=== PATIENT | male | born 1985 | race Caucasian/White ===

== ENCOUNTER 2023-05-25 11:06 | Emergency (ER) | payer OTHER, SELFPAY ==
[2023-05-25 11:23] VITALS: BP 149/82; PULSE 70; RESP 16; TEMP 36.3; O2SAT 100
--- NOTE | 2023-05-25 11:36 | ED.SKABFB ---
HPI - Skin/Abscess/Foreign Bdy General Chief complaint: Skin/Abscess/Foreign Body Stated complaint: Bumps,Lumps, on Butt Time Seen by Provider: 05/25/23 11:36 Source: patient Mode of arrival: ambulatory Limitations: no limitations History of Present Illness HPI narrative: 37 yo M presents with c/o pain to tailbone. Is concerned that he has a pilonidal cyst. Feels a bump. pain worse when sitting. States he had pilonidal cyst approx. 10 yrs ago and took abx and went away. Denies excision. Afebrile. pt states just wants some abx and pain medicine. All systems reviewed and negative except as noted above. Related Data Home Medications Medication Instructions Recorded Confirmed albuterol sulfate 90 mcg/actuation inhalation 05/25/23 aerosol inhaler blood sugar diagnostic (OneTouch 05/25/23 05/25/23 Verio test strips) budesonide-formoterol HFA 160 inhalation 05/25/23 mcg-4.5 mcg/actuation aerosol inhaler empagliflozin 10 mg tablet mg 05/25/23 (Jardiance) fluoxetine 40 mg capsule mg 05/25/23 metformin 500 mg tablet mg 05/25/23 omeprazole 20 mg capsule,delayed mg 05/25/23 release Allergies Allergy/AdvReac Type Severity Reaction Status Date / Time tramadol AdvReac Nausea Verified 05/25/23 11:31 Review of Systems Review of Systems: CONSTITUTIONAL: Denies fever, chills, or sweats. EYES: Denies visual changes, redness, or discharge. ENT: Denies rhinorrhea, congestion, sore throat, or otalgia. CARDIOVASCULAR: Denies chest pain, palpitations, or edema. RESPIRATORY: Denies cough or dyspnea. GASTROINTESTINAL: Denies abdominal pain, nausea, vomiting, or diarrhea. GENITOURINARY: Denies dysuria or hematuria. SKIN: Denies rash or itching. reports Bump to tailbone concerning for pilonidal cyst. MUSCULOSKELETAL: Denies back pain, joint pain, or myalgia. NEUROLOGIC: Denies headache, numbness, or weakness. PSYCHIATRIC: Denies anxiety or depression. All other systems reviewed are negative, except as documented in HPI. [facility] Comments At time of signature, agree with nursing past medical, surgical, social and family history. There is no relevant family history pertinent to the presenting complaint. Exam Narrative: GENERAL: This is a well-nourished, well-developed patient, in no apparent distress. HEAD: normocephalic, atraumatic. EYES: PERRL. Sclera clear/white. Vision is grossly intact. EARS: External ears normal NOSE: External nose normal NECK: Neck supple, non-tender without lymphadenopathy, masses or thyromegaly. CARDIOVASCULAR: Regular rate and rhythm without murmurs, gallops, or rubs. RESPIRATORY: Clear to auscultation. Breath sounds equal bilaterally. No wheezes, rales, or rhonchi. SKIN: warm, Dry, intact with no suspicious lesions or rash, good texture and turgor. firm raised area just above tailbone, 4cmx 2cm, without erythema or warmth. no fluctuance. tender on palpation. NEURO: awake, alert, and oriented to person, place and time. There were no obvious focal neurologic abnormalities. EXTREMITIES: No joint tenderness, effusion, or edema noted. Course Course Level of Care: Express Care Visit Vital Signs Vital signs: Vital Signs Temperature 36.3 C L 05/25/23 11:23 Pulse Rate 70 05/25/23 11:23 Respiratory Rate 16 05/25/23 11:23 Blood Pressure 149/82 H 05/25/23 11:23 Pulse Oximetry 100 05/25/23 11:23 Oxygen Delivery Room Air 05/25/23 11:23 Temperature 36.3 C L 05/25/23 11:23 Pulse Rate 70 05/25/23 11:23 Respiratory Rate 16 05/25/23 11:23 Blood Pressure 149/82 H 05/25/23 11:23 Pulse Oximetry 100 05/25/23 11:23 Oxygen Delivery Room Air 05/25/23 11:23 reviewed. MDM - Skin/Abscess/Foreign Bdy MDM Narrative Medical decision making narrative: Patient is aware of diagnosis, understands and agrees to treatment plan. Anticipatory guidance given. Patient agrees to follow-up as directed and is aware of reasons to seek care at the emergency
== END 2023-05-25 11:52 | disposition home or self-care (01) ==
PROVIDERS: Emergency Provider Nurse Practitioner Family; PCP Internal Medicine
DX: L05.91 Pilonidal cyst without abscess (principal); J45.909 Unspecified asthma, uncomplicated; E11.9 Type 2 diabetes mellitus without complications
CPT/HCPCS: 99203; G0463

== ENCOUNTER 2024-02-22 13:41 | Emergency (ER) | payer BC, SELFPAY ==
--- NOTE | ~2024-02-22 | XR_ITS ---
EXAMINATION: XR hand LT min 3V DATE: 02/22/2024 16:08 INDICATION: Left hand second digit laceration. TECHNIQUE: 3 views of left hand were obtained. COMPARISON: None. FINDINGS: Bone alignment is normal. No fracture. Joint spaces are normal. IMPRESSION: 1. No fracture. Reviewed, dictated and finalized at location E. IMPRESSION: 1. No fracture.
[2024-02-22 13:47] VITALS: BP 122/74; PULSE 61; RESP 18; TEMP 36.4; O2SAT 99
--- NOTE | 2024-02-22 17:08 | ED.WOUNDLAC ---
HPI - Wound/Laceration General Chief Complaint: Wound/Laceration Stated Complaint: finger injury Time Seen by Provider: 02/22/24 15:23 History of Present Illness HPI narrative: This is a 38-year-old male, who presents emergency department with a laceration of the left index finger. The patient states he was using a rawhide trimmer, when he was caught on the distal aspect of the 1st finger. The patient is right handed. He denies injury elsewhere. The patient states he has a strong vasovagal response and passed out after the injury. He has no other complaints at this time. He states his last tetanus vaccination was in 2019. Related Data Home Medications Medication Instructions Recorded Confirmed albuterol sulfate 90 mcg/actuation inhalation 05/25/23 aerosol inhaler blood sugar diagnostic (OneTouch 05/25/23 05/25/23 Verio test strips) budesonide-formoterol HFA 160 inhalation 05/25/23 mcg-4.5 mcg/actuation aerosol inhaler empagliflozin 10 mg tablet mg 05/25/23 (Jardiance) fluoxetine 40 mg capsule mg 05/25/23 metformin 500 mg tablet mg 05/25/23 omeprazole 20 mg capsule,delayed mg 05/25/23 release Allergies Allergy/AdvReac Type Severity Reaction Status Date / Time morphine Allergy Other Verified 02/22/24 13:44 tramadol AdvReac Nausea Verified 02/22/24 13:44 Review of Systems Review of Systems: CONSTITUTIONAL: Denies fever, chills, or sweats. EYES: Denies visual changes, redness, or discharge. ENT: Denies rhinorrhea, congestion, sore throat, or otalgia. CARDIOVASCULAR: Denies chest pain, palpitations, or edema. RESPIRATORY: Denies cough or dyspnea. GASTROINTESTINAL: Denies abdominal pain, nausea, vomiting, or diarrhea. GENITOURINARY: Denies dysuria or hematuria. SKIN: Denies rash or itching. MUSCULOSKELETAL: Left index finger laceration. Denies back pain, joint pain, or myalgia. NEUROLOGIC: Denies headache, numbness, dizziness, or weakness. PSYCHIATRIC: Denies anxiety or depression. [facility] Past Medical History Medical History Pilonidal cyst Surgical History Surgical History No significant past surgical history Social History Social History Smoking status: Never smoker Alcohol intake: current Substance use: never Exam Narrative: GENERAL: Well-developed, well-nourished, and in no acute distress. HEAD: Normocephalic, atraumatic. EYES: PERRLA and EOMI. CHEST: Clear to auscultation. No respiratory distress. No wheezes rales or rhonchi HEART: Regular rate and rhythm. No murmur heard. Normal peripheral pulses. ABDOMEN: Soft, nontender, nondistended, normal active bowel sounds. EXTREMITIES: There is a 2 cm laceration in the midline distal left index finger, involving the nail bed. Normal range of motion. No edema. SKIN: Warm, dry, no rash. NEURO: Alert and oriented x3. No focal deficit. Moving all 4 limbs spontaneously PSYCH: Normal mood and affect. Course Course Emergency Course: 16:55 - X-ray not concerning for fracture retained foreign object. I attempted to repair the patient's laceration with sutures, however the patient had a vasovagal response. He requested the repair patch changed to glue. The wound was repaired with glue and placed in a finger splint. Will discharge with recommendation for primary care follow-up. I discussed the findings and recommendations with the patient. Discussed return and emergency precautions including signs/symptoms of septic arthritis and neurovascular compromise. The patient voiced understanding and agreement with the plan. All questions answered to his satisfaction. Vital Signs Vital signs: Vital Signs Temperature 97.5 F L 02/22/24 13:47 Pulse Rate 61 02/22/24 13:47 Respiratory Rate 18 02/22/24 13:47 Blood Pressure 122/74 02/22/24 13:47 Pulse Oximetry
== END 2024-02-22 17:25 | disposition home or self-care (01) ==
PROVIDERS: Emergency Provider Preventive Medicine Aerospace Medicine
DX: S61.311A Laceration without foreign body of left index finger with damage to nail, initial encounter (principal); Z79.84 Long term (current) use of oral hypoglycemic drugs; W29.3XXA Contact with powered garden and outdoor hand tools and machinery, initial encounter
CPT/HCPCS: 12001; 73130; 99283